=== PATIENT | female | born 1980 | race Caucasian/White ===

== ENCOUNTER 2022-03-05 15:03 | Outpatient (CLI) | payer BC ==
[2022-03-05 15:29] LABS: Bilirubin Neg (Negative); Blood, Urine 150 (Negative); Clarity Clear (Clear); Glucose, Urine (Dipstick) Normal (Negative); Ketone, Urine Negative (Negative); Leukocyte 25 (Negative); Nitrite Negative (Negative); Protein, Urine (Dipstick) Negative (Neg-Trace); Urobilinogen Normal mg/dL (Less than 2)
[2022-03-05 15:41] LABS: Hemoglobin 11.5 g/dL (12.0-15.5); Mean Corpuscular HGB CONC 34.7 g/dL (32.0-36.0); Mean Corpuscular Hemoglobin 30.3 pg (27.0-33.0); Mean Corpuscular Volume 87.1 fl (81.6-98.3); Platelet Count 245 10x3/uL (150-450); RBC Distribution Width 12.2 % (11.5-14.5); White Blood Cell (WBC) Count 4.7 10x3/uL (3.5-10.5)
[2022-03-05 16:41] LABS: BHCG - Serum Negative (NEGATIVE); Pregs Control Background? CLEAR/WHITE (CLR/WHITE); Pregs Control Bar Appear? YES (CONTROL BAR)
[2022-03-05 23:03] LABS: SARS-CoV-2 PCR by NAA Not Detected (NotDetected)
== END 2022-03-05 15:04 | disposition home or self-care (01) ==
LOC: CSHLAB 15:03
PROVIDERS: ATTEND Obstetrics & Gynecology
DX: Z01.812 Encounter for preprocedural laboratory examination (principal); Z20.822 Contact with and (suspected) exposure to COVID-19; R93.89 Abnormal findings on diagnostic imaging of other specified body structures; N92.6 Irregular menstruation, unspecified
CPT/HCPCS: 81003; 84703; 85027; U0003; U0005

== ENCOUNTER 2022-03-08 05:35 | Day surgery (SDC) | payer BC ==
[2022-03-06 09:09] VITALS: BMI 27.1
[2022-03-08] MEDS ORDERED: Lidocaine 1% MPF 2 ML VIAL ONE (06:30)
[2022-03-08] MEDS ORDERED: PROPOFOL 0 ML ONE (06:47)
[2022-03-08] MEDS ORDERED: Fentanyl 100 MCG/2 ML VIAL ONE ×2 (06:47→08:20)
[2022-03-08] MEDS ORDERED: Lidocaine 1% PF 5 ML VIAL ONE (06:48)
[2022-03-08] MEDS ORDERED: Ondansetron PF 4 MG/2 ML Vial ONE (06:48)
[2022-03-08] MEDS ORDERED: Dexamethasone 4 mg/ml Vial ONE (06:48)
[2022-03-08] MEDS ORDERED: Ketorolac Tromethamine 30 MG/ML VIAL ONE (06:48)
[2022-03-08] MEDS ORDERED: ceFAZolin 2 GM/Dextrose 50 ML IVPB ONE (06:53)
[2022-03-08] MEDS ORDERED: Midazolam HCl 2 mg/2 ml Vial ONE (06:59)
[2022-03-08] MEDS ORDERED: Midazolam HCl 2 mg/2 ml Vial SLOW IVP SCH (07:00)
[2022-03-08] MEDS ORDERED: PROPOFOL 20 ML ONE (07:07)
[2022-03-08] MEDS ORDERED: diphenhydrAMINE 50 MG/ML VIAL ONE (07:16)
[2022-03-08] MEDS ORDERED: Silver Nitrate Application 1 EACH ONE (07:44)
== END 2022-03-08 09:45 | disposition home or self-care (01) ==
LOC: CSHSDC 05:35
PROVIDERS: ATTEND Obstetrics & Gynecology
PROC: 0U5B8ZZ Destruction of Endometrium, Via Natural or Artificial Opening Endoscopic (ICD-10-PCS; principal; 2022-03-08)
DX: N84.0 Polyp of corpus uteri (principal); N92.1 Excessive and frequent menstruation with irregular cycle; J45.909 Unspecified asthma, uncomplicated; K21.9 Gastro-esophageal reflux disease without esophagitis; I51.9 Heart disease, unspecified; Z79.899 Other long term (current) drug therapy; Z88.0 Allergy status to penicillin
CPT/HCPCS: 88305; J0690; J1100; J1200; J1885; J2250; J2405; J2704; J3010; L8699

== ENCOUNTER 2023-07-21 15:02 | Outpatient (CLI) | payer BC | END 2023-07-21 15:03 | disposition home or self-care (01) | LOC: CSHMAMMO 15:02 | PROVIDERS: ATTEND Nurse Practitioner Family | DX: Z12.31 Encounter for screening mammogram for malignant neoplasm of breast (principal); Z98.82 Breast implant status | CPT/HCPCS: 77063; 77067 ==

== ENCOUNTER 2024-08-17 13:06 | Outpatient (CLI) | payer BC | END 2024-08-17 13:07 | disposition home or self-care (01) | LOC: CSHMAMMO 13:06 | PROVIDERS: ATTEND Obstetrics & Gynecology | DX: Z12.31 Encounter for screening mammogram for malignant neoplasm of breast (principal); Z98.82 Breast implant status; Z90.12 Acquired absence of left breast and nipple | CPT/HCPCS: 77063; 77067 ==